=== PATIENT | female | born 1980 | race Caucasian/White ===

== ENCOUNTER 2019-11-14 20:31 | Emergency (ER) | payer BC, OTHER ==
[2019-11-14] MEDS ORDERED: IBUPROFEN 600 MG TABLET (FP) PO ONE (20:42)
[2019-11-14 20:44] VITALS: BP 152/90; PULSE 74; TEMP 98.4; BMI 42.5
== END 2019-11-14 22:17 | disposition home or self-care (01) ==
LOC: JERFT 20:31 → JER 20:31 → JERFT 22:17
DX: S16.1XXA Strain of muscle, fascia and tendon at neck level, initial encounter (principal); R07.81 Pleurodynia; V49.50XA Passenger injured in collision with unspecified motor vehicles in traffic accident, initial encounter
CPT/HCPCS: 71046-TC-FY; 71101-TC-LT-FY; 72050-TC-FY; 99284-25

== ENCOUNTER 2023-07-07 16:44 | Emergency (ER) | payer BC, OTHER ==
[2023-07-07 17:38] VITALS: RESP 18; BMI 43.4
[2023-07-07] MEDS ORDERED: ACETAMINOPHEN INJECTION 100 ML IVPB ONE (20:39)
[2023-07-07] MEDS ORDERED: ONDANSETRON 4 MG/2 ML VIAL ONE (20:40)
[2023-07-07] MEDS: ONDANSETRON 4 MG/2 ML VIAL IVPUSH ONE (20:56)
[2023-07-07] MEDS: ACETAMINOPHEN 1000 MG/100 ML BAG IVPB ONE (20:56)
[2023-07-07] MEDS: SODIUM CHLORIDE 1,000 ML IV STA (20:57)
[2023-07-07 21:09] LABS: BASO % 0.7 % (0-2.0); EOS % 0.1 % (0-4.5); HEMATOCRIT 40.2 % (32.4-45.2); HEMOGLOBIN 13.6 GM/dL (10.7-15.3); LYMPH % 15.8 % (8-40); MCH 30.6 pg (25.7-33.7); MCHC 33.8 g/dl (32.0-36.0); MEAN CELL VOLUME 90.5 fl (80-96); MEAN PLT VOLUME 8.7 fl (7.5-11.1); MONO % 4.2 % (3.8-10.2); NEUT % 79.2 % (42.8-82.8); PLATELET COUNT 304 10^3/uL (134-434); RBC 4.44 M/mm3 (3.60-5.2); RDW 14.6 % (11.6-15.6); WHITE BLOOD COUNT 7.1 K/mm3 (4.0-10.0)
[2023-07-07 21:24] LABS: EPI CELLS 22 /uL (0-25.1); HYALINE CASTS 1 /uL (0-3.1); PH,URINE 5.5 (5.0-8.0); URINE APPEARANCE TURBID; URINE BACTERIA 9 /uL (0-1359); URINE BILIRUBIN NEGATIVE (NEGATIVE); URINE COLOR ORANGE; URINE GLUCOSE (UA) NEGATIVE (NEGATIVE); URINE KETONE 1+ (NEGATIVE); URINE LEUK ESTERASE TRACE (NEGATIVE); URINE NITRITE NEGATIVE (NEGATIVE); URINE PROTEIN 2+ (NEGATIVE); URINE RBC 4462 /uL (0-23.9); URINE WBC 42 /uL (0-25.8)
[2023-07-07 21:26] LABS: INR 1.17 (0.83-1.09); PROTHROMBIN TIME (PATIENT) 13.5 SEC (9.7-13.0)
[2023-07-07 21:29] LABS: ACTIVATED PTT 32.7 SECONDS (25.2-36.5)
[2023-07-07 21:35] LABS: POTASSIUM 4.7 mmol/L (3.5-5.1)
[2023-07-07 21:37] LABS: CALCIUM 9.2 mg/dL (8.5-10.1)
[2023-07-07 21:38] LABS: BLOOD UREA NITROGEN 12.1 mg/dL (7-18)
[2023-07-07 21:41] LABS: CREATININE 0.8 mg/dL (0.55-1.3)
[2023-07-07 21:43] LABS: TOT PROT 8.2 g/dl (6.4-8.2)
[2023-07-07 21:44] LABS: BILIRUBIN,TOTAL 0.7 mg/dL (0.2-1)
[2023-07-07] MEDS ORDERED: KETOROLAC TROMETHAMINE 30 MG/1 ML VIAL ONE ×2 (23:16→23:21)
[2023-07-07] MEDS ORDERED: METOCLOPRAMIDE HCL INJECTION 10 MG/2 ML VIAL ONE ×2 (23:18→23:21)
[2023-07-07] MEDS: KETOROLAC TROMETHAMINE 30 MG/1 ML VIAL IVPUSH ONE (23:28)
[2023-07-07] MEDS: METOCLOPRAMIDE HCL INJECTION 10 MG/2 ML VIAL IVPUSH ONE (23:28)
[2023-07-08 01:06] VITALS: BP 140/87; PULSE 73; TEMP 98.9
== END 2023-07-08 01:28 | disposition home or self-care (01) ==
LOC: JER 16:44
PROC: 3E033NZ Introduction of Analgesics, Hypnotics, Sedatives into Peripheral Vein, Percutaneous Approach (ICD-10-PCS; principal; 2023-07-07)
PROC: 3E0333Z Introduction of Anti-inflammatory into Peripheral Vein, Percutaneous Approach (ICD-10-PCS; 2023-07-07)
PROC: 3E033GC Introduction of Other Therapeutic Substance into Peripheral Vein, Percutaneous Approach (ICD-10-PCS; 2023-07-07)
PROC: 3E033GC Introduction of Other Therapeutic Substance into Peripheral Vein, Percutaneous Approach (ICD-10-PCS; 2023-07-07)
PROC: 3E0337Z Introduction of Electrolytic and Water Balance Substance into Peripheral Vein, Percutaneous Approach (ICD-10-PCS; 2023-07-07)
DX: R10.32 Left lower quadrant pain (principal); N20.0 Calculus of kidney; M54.50 Low back pain, unspecified; R11.2 Nausea with vomiting, unspecified
CPT/HCPCS: 36415; 74177-TC; 76830-TC; 80053; 81003; 83690; 84703; 85025; 85610; 85730; 87077; 87086; 99285-25; J0131

== ENCOUNTER 2023-08-25 04:47 | Day surgery (SDC) | payer BC, OTHER ==
[2023-08-19 13:40] VITALS: BMI 46.3
[2023-08-25] MEDS ORDERED: ONDANSETRON 4 MG/2 ML VIAL ONE (13:15)
[2023-08-25] MEDS ORDERED: PROPOFOL 40 ML ONE (13:15)
[2023-08-25] MEDS ORDERED: DEXAMETHASONE SOD PHOSPHATE 4 MG/1 ML VIAL ONE (13:15)
[2023-08-25] MEDS ORDERED: LIDOCAINE HCL/PF 2% SDV 5ML VIAL ONE (13:16)
[2023-08-25] MEDS ORDERED: KETOROLAC TROMETHAMINE 30 MG/1 ML VIAL ONE (13:16)
[2023-08-25] MEDS ORDERED: FENTANYL CITRATE/PF 50 MCG/ML VIAL ONE (13:17)
[2023-08-25] MEDS ORDERED: MIDAZOLAM HCL 2 MG/2 ML SINGLE DOSE VIAL ONE (13:18)
[2023-08-25] MEDS ORDERED: ACETAMINOPHEN INJECTION 100 ML IVPB ONE (13:19)
[2023-08-25] MEDS ORDERED: ceFAZolin SODIUM 1 GM VIAL ONE (13:33)
[2023-08-25] MEDS ORDERED: ceFAZolin SODIUM 1 GM VIAL IVPB ONE (13:33)
[2023-08-25] MEDS ORDERED: SODIUM CHLORIDE 0.9% P/F 10 ML VIAL IJ ONE (13:34)
[2023-08-25] MEDS ORDERED: IBUPROFEN 800 MG/8 ML IJ IVPB ONE (13:34)
[2023-08-25] MEDS ORDERED: ONDANSETRON 4 MG/2 ML VIAL IVPUSH PRN (14:05)
[2023-08-25] MEDS ORDERED: oxyCODONE HCL 5 MG TABLET PO PRN (14:05)
[2023-08-25] MEDS ORDERED: LACTATED RINGERS SOLUTION 1,000 ML IV SCH (14:15)
[2023-08-25] MEDS: oxyCODONE HCL 5 MG TABLET PO ONE (15:58)
[2023-08-25] MEDS ORDERED: oxyCODONE HCL 5 MG TABLET ONE (16:00)
[2023-08-25 16:12] VITALS: RESP 16
[2023-08-25 16:42] VITALS: BP 140/82; PULSE 75; TEMP 97.4
== END 2023-08-25 16:38 | disposition home or self-care (01) ==
LOC: JASU-SURG 04:47
PROVIDERS: ATTEND Urology
PROC: 0TC78ZZ Extirpation of Matter from Left Ureter, Via Natural or Artificial Opening Endoscopic (ICD-10-PCS; principal; 2023-08-25 13:00)
PROC: 0T778DZ Dilation of Left Ureter with Intraluminal Device, Via Natural or Artificial Opening Endoscopic (ICD-10-PCS; 2023-08-25 13:00)
DX: N20.1 Calculus of ureter (principal)
CPT/HCPCS: 76000-TC-FY; 81025; 94760; C1758; C2617; J0131